=== PATIENT | male | born 1985 | race Two or more races ===

== ENCOUNTER 2016-12-10 07:19 | Emergency (ER) | payer OTHER ==
[~2016-12-10] VITALS: Ht 175.3 cm; Wt 95.3 kg
[~2016-12-10 07:19] MED LIST: PROMETHAZINE HC25 M1 PO
== END 2016-12-10 09:49 | disposition home or self-care (01) ==
LOC: ED 07:19
DX: E86.0 Dehydration (principal); M62.82 Rhabdomyolysis; F17.200 Nicotine dependence, unspecified, uncomplicated
CPT/HCPCS: 71020; 80053; 81001; 82550; 85025; 96360; 99284; J7030

== ENCOUNTER 2017-01-26 17:52 | Emergency (ER) | payer OTHER ==
[~2017-01-26] VITALS: Ht 175.3 cm; Wt 106.6 kg
[2017-01-26] MEDS ORDERED: DEXAMETHASONE6 MG PO (20:05)
[2017-01-26] MEDS ORDERED: NORCO 5-325 TA1 EACH PO (20:05)
[2017-01-26] MEDS ORDERED: CLINDAMYCIN HC300 MG PO (20:05)
== END 2017-01-26 20:22 | disposition home or self-care (01) ==
LOC: ED 17:52
DX: J02.0 Streptococcal pharyngitis (principal); F17.200 Nicotine dependence, unspecified, uncomplicated
CPT/HCPCS: 87880; 99283; J1100

== ENCOUNTER 2018-08-14 14:32 | Emergency (ER) | payer OTHER ==
[~2018-08-14] VITALS: Ht 175.3 cm; Wt 106.6 kg
[~2018-08-14 14:32] MED LIST changes: +CLINDAMYCIN HC300 MG PO; +DEXAMETHASONE6 MG PO; +NORCO 5-325 TA1 EACH PO
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
== END 2018-08-14 18:28 | disposition home or self-care (01) ==
LOC: ED 14:32
DX: S02.2XXA Fracture of nasal bones, initial encounter for closed fracture (principal); Y04.8XXA Assault by other bodily force, initial encounter; Z87.891 Personal history of nicotine dependence; Z79.52 Long term (current) use of systemic steroids
CPT/HCPCS: 70486; 99284-25